=== PATIENT | female | born 1965 | race Caucasian/White ===

== ENCOUNTER 2018-10-10 13:38 | Inpatient (IN) ==
[2018-10-10] MEDS: PROTONIX IV SCH (16:42)
[2018-10-10] MEDS: ZOSYN 3.375 GM in NS 50 ML IV SCH ×2 (16:42→22:49)
[2018-10-10] MEDS ORDERED: NS 250 ML ONE (17:10)
[2018-10-10] MEDS: FLAGYL 500 MG/NS 500 MG/100 ML IVPB IV SCH ×2 (17:14→22:48)
[2018-10-10] MEDS: MORPHINE IV PRN ×2 (17:22→22:42)
[2018-10-10] MEDS ORDERED: ZOFRAN IV PRN (19:52)
[2018-10-10] MEDS: NS + KCL 20 MEQ 1,000 ML IV SCH (20:22)
--- NOTE | 2018-10-10 20:56 | CONSULTATION ---
DATE OF CONSULTATION: 10/10/2018 HISTORY OF PRESENT ILLNESS: Ms. Tova Crowder is a 52-year-old, overweight, white female patient of Dr. Torres. She began hurting in her left lower quadrant and as part of her evaluation, she underwent a CT scan of her abdomen and pelvis which suggests acute sigmoid diverticulitis with complication of possible small abscess. She was admitted for IV antibiotics, and we were asked to see her. She had an episode of diverticulitis 5 years ago which resolved with IV antibiotic treatment. PAST MEDICAL/SURGICAL HISTORY: Three C-sections, hysterectomy, bilateral shoulder surgeries, right knee surgery, Breast reduction, high cholesterol, diabetes. MEDICATIONS: Lipitor, Celebrex, Bentyl,Asacol, Glucophage, omeprazole and Effexor. ALLERGIES: Oxycodone. SOCIAL HISTORY: She is not a smoker. was at the bedside. She has 3 children. Sometimes she takes care of her grandchildren. She stays at home but remains active. REVIEW OF SYSTEMS: A 14-point review of systems was performed and was essentially negative except for the history of present illness. PHYSICAL EXAMINATION: General: On exam, Ms. Crowder is overweight but otherwise appears to be healthy. She is in no acute distress. HEENT: She has no jaundice. No oral lesions. Satisfactory dentition. Lymphatics: No cervical or supraclavicular lymphadenopathy. Cardiovascular: Her heart has a regular rate. Lungs: Clear to auscultation and percussion bilaterally. Abdomen: It is soft but is tender in the left lower quadrant. Rectal exam: Was not performed. Extremities: She does have palpable peripheral pulses. No significant peripheral edema. Neurologic: She is alert and oriented x3 and appropriate without evidence of any focal deficit. IMAGING: CT scan performed today suggested sigmoid diverticulitis with possible small abscess. IMPRESSION: Acute complicated sigmoid diverticulitis with possible small abscess. PLAN: She is receiving IV Zosyn and Flagyl and a clear liquid diet per Dr. Torres. I will follow along with you. cc: MD Timothy Mora MD
--- NOTE | 2018-10-10 20:56 | HISTORY AND PHYSICAL ---
CHIEF COMPLAINT: Left lower quadrant pain. HISTORY OF PRESENT ILLNESS: Ms. Crowder is a 52-year-old white female patient complaining of pain in the left lower quadrant going on for 2 days. The pain was gradually getting worse, colicky in nature. The patient did have some chills and low-grade fever. The patient noticed some mucus in the stool today. Initially, she was complaining of being constipated. The pain was moderate to severe in intensity. At times, it was doubling her up. No blood in the stool. Mild dysuria. The patient did have nausea but no vomiting. I evaluated the patient in the office. The patient did have significant tenderness in the left lower quadrant. I offered her hospitalization, but the patient declined. I did initial workup including blood work and a CT scan of the abdomen and pelvis, which her blood work did reveal leukocytosis with left shift. The patient's urine revealed 2+ bacteria, and CT scan of the abdomen and pelvis revealed prominent fatty infiltration of the liver, inflammation at the descending colon/sigmoid colon junction. There were multiple diverticula in this location. Tiny adjacent fluid collection measuring 1.4 cm versus an enlarged diverticulum. No air within this. No bowel obstruction. Overall impression: Diverticulitis at the junction of the descending and sigmoid colon, questionable tiny adjacent early abscess. I called the patient back, discussed the result, and advised her to be admitted for IV antibiotics and IV fluids. The patient understood and agreed. The patient denied any sore throat. No unusual cough, expectoration, or hemoptysis. No typical chest pain, palpitation, orthopnea, or PND. Denied vaginal discharge, spotting, bleeding. No leg swelling. No heat or cold intolerance. No further history available at this time. ALLERGIES: Oxycodone. HOME MEDICATIONS: Her home medication includes Lipitor, Celebrex, Bentyl, Asacol, Glucophage, Prilosec, Effexor. PAST MEDICAL HISTORY: Significant for gastritis and reflux disease, situational depression, NIDDM, colitis, colon spasm, osteoarthritis, hyperlipidemia. PAST SURGICAL HISTORY: The patient had a hysterectomy. PERSONAL HISTORY: . Lives with the . The patient denied smoking or alcohol use. FAMILY HISTORY: Noncontributory. REVIEW OF SYSTEMS: As per HPI. PHYSICAL EXAMINATION: GENERAL: Middle-aged white female patient in mild distress. VITAL SIGNS: Blood pressure 145/87, pulse 100, respirations 22, temperature 99 degrees. SKIN: Normal turgor. No rash or petechiae. HEENT: Head atraumatic, normocephalic. Wylie conjunctivae. Anicteric sclerae. Extraocular muscle movement normal. Fundus: Sharp disks. Ears and nose benign. NECK: Supple. No JVD, thyromegaly, or lymphadenopathy. CHEST: Bilateral good air entry present. No rales or rhonchi. CARDIOVASCULAR: S1 and S2 heard. No gallop or thrill. ABDOMEN: Soft. No distention. Bowel sounds present. Significant tenderness in the left lower quadrant. No guarding or rigidity. EXTREMITIES: No cyanosis or clubbing. No acute DVT. CENTRAL NERVOUS SYSTEM: Alert, awake. Able to move all 4 limbs. IMAGING STUDIES: The patient's CT scan results were reviewed. LABORATORIES: Her admission lab data was reviewed which revealed leukocytosis with left shift. Her electrolytes were benign. CONSIDERATION: 1. Acute diverticulitis with localized abscess. 2. Hypertension. 3. Hyperlipidemia. 4. Osteoarthritis. 5. Gastritis and reflux disease. 6. [id number] diabetes mellitus. PLAN: Admit patient. IV hydration. IV antibiotics. Surgical consult. Overall plan discussed at length with the patient and her . They are in agreement. cc: Timothy Torres MD
[2018-10-10] MEDS: EFFEXOR PO SCH (22:46)
[2018-10-10] MEDS: LIPITOR PO SCH (22:46)
[2018-10-11] MEDS: ZOSYN 3.375 GM in NS 50 ML IV SCH ×4 (04:28→22:33)
[2018-10-11] MEDS: FLAGYL 500 MG/NS 500 MG/100 ML IVPB IV SCH ×4 (04:28→23:30)
[2018-10-11] MEDS: NS + KCL 20 MEQ 1,000 ML IV SCH ×3 (06:07→22:33)
[2018-10-11] MEDS: LOVENOX SUBQ SCH (06:07)
--- NOTE | 2018-10-11 07:15 | PROGRESS NOTE ---
DATE: 10/11/2018 SUBJECTIVE: Ms. Crowder is feeling some better. Abdominal pain and soreness improving. No nausea or vomiting. Denied any diarrhea. No high-grade fever or chills. No chest pain. OBJECTIVE: Vital Signs: Her vital signs are noted which is stable. Blood pressure 125/75, pulse 90, respirations 19, and temperature 97.8 degrees. Neck: Supple. No JVD. Lungs: Bilateral good air entry present. CVS: S1 and S2 heard. Abdomen: Soft and nontender. Bowel sounds present. [employer] TECHNICIAN: Alert and awake. Able to move all 4 limbs. Tenderness in left lower quadrant improving. CONSIDERATION: Sigmoid diverticulitis with possibility of abscess. History of gastritis and reflux disease. NIDDM. Osteoarthritis. PLAN: We will continue current treatment. The patient will stay on clear to full liquid diet for 3 to 4 days. If clinical condition permits, we will discharge patient home tomorrow. Follow up with me in 7 days. Advised her to start Glucophage after 48 hours. Plenty of liquids orally. In case of more distress, call us back or go to emergency room. I wrote her prescription for Flagyl and Augmentin. Discharge plan discussed with the patient and she is in agreement. cc: Timothy Torres MD
[2018-10-11 07:41] LABS: BASO# 0.02 X1000 (0.0-0.2); BASO% 0.2 % (0.0-0.8); EOS# 0.13 X1000 (0.0-0.7); EOS% 1.4 % (0.0-10.0); HEMATOCRIT 42.1 % (37.0-47.0); HEMOGLOBIN 13.9 g/dL (12.0-16.0); IMM GRAN# 0.02 X1000 (0.0-0.04); IMM GRAN% 0.2 % (0.0-0.5); LYMPH# 2.51 X1000 (1.2-3.4); LYMPH% 27.3 % (20.5-51.1); MCH 27.9 PG (27-31); MCV 84.5 FL (81-99); MONO# 0.78 X1000 (0.11-0.59); MONO% 8.5 % (1.7-9.3); MPV 9.7 FL (7.4-10.4); NEUT# 5.72 X1000 (1.4-6.5); NEUT% 62.4 % (42.2-75.2); PLT 401 X1000 (130-400); RBC 4.98 XMIL (4.2-5.4); RDW 13.3 % (11.5-14.5); WBC 9.18 X1000 (4.8-10.8)
[2018-10-11 08:10] LABS: AGAP 11; ALB/GLOB RATIO 1.2; ALBUMIN 3.9 g/dL (3.5-5.0); ALKALINE PHOSPHATASE 105 U/L (32-104); BUN 10 mg/dL (8-22); CALCIUM 8.7 mg/dL (8.8-10.2); CHLORIDE 106 mmol/L (98-107); COSMO 281; CREATININE 0.7 mg/dL (0.5-0.9); ESTIMATED GFR > 60; GLUCOSE 112 mg/dL (70-104); GOT 17 U/L (10-30); GPT 26 U/L (10-36); POTASSIUM 4.4 mmol/L (3.5-5.1); SODIUM 141 mmol/L (136-145); TCO2 24 mmol/L (25-35); TOTAL BILIRUBIN 0.69 mg/dL (0.20-1.00); TOTAL PROTEIN 7.2 g/dL (6.3-8.3)
--- NOTE | 2018-10-11 08:52 | Diag Imaging Result Doc PS360 ---
EXAM: FLAT/UPRIGHT ABD/1 VIEW CHEST INDICATION: Diverticulitis TECHNIQUE: 4 views COMPARISON: 10/10/2018 FINDINGS: There is retained contrast media in the colon from a recent CT performed yesterday. There are unremarkable bowel gas and stool patterns. There is no obstructive bowel pattern. There is no evidence of large volume free abdominal gas. There is no evidence of organomegaly. The lungs are grossly clear. There is no discrete pleural fluid collection or pneumothorax. The cardiomediastinal silhouette and central vasculature are grossly unremarkable. IMPRESSION: No evidence of acute pathology by plain radiograph. Electronically signed by Harley Thomas 10/11/2018 8:50 AM
[2018-10-11] MEDS: EFFEXOR PO SCH ×3 (09:10→20:21)
[2018-10-11] MEDS: ASACOL HD PO SCH ×3 (09:54→17:08)
[2018-10-11] MEDS: PROTONIX IV SCH (17:09)
--- NOTE | 2018-10-11 17:46 | PROGRESS NOTE ---
DATE: 10/11/2018 Ms. Crowder is now hospital day 2 for acute complicated sigmoid diverticulitis. She is receiving IV antibiotics and clinically already feels better. She is afebrile. Her heart rate is 82, blood pressure 130/90, O2 saturation is 98%. Her white blood cell count is 9, hematocrit is 42%. Electrolytes were within normal limits as were her liver function tests. A plain film done today was essentially normal. She is still on a clear liquid diet. IV antibiotics continue. cc: MD Timothy Mora MD
[2018-10-11] MEDS: LIPITOR PO SCH ×2 (19:44→20:22)
[2018-10-11] MEDS: MORPHINE IV PRN (19:44)
[2018-10-12] MEDS: ZOSYN 3.375 GM in NS 50 ML IV SCH ×4 (04:05→23:09)
[2018-10-12] MEDS: NS + KCL 20 MEQ 1,000 ML IV SCH ×4 (04:05→23:12)
[2018-10-12] MEDS: FLAGYL 500 MG/NS 500 MG/100 ML IVPB IV SCH ×4 (05:16→23:10)
[2018-10-12] MEDS: LOVENOX SUBQ SCH (05:17)
[2018-10-12] MEDS: ASACOL HD PO SCH ×3 (08:42→17:15)
[2018-10-12] MEDS: EFFEXOR PO SCH ×2 (08:42→20:25)
[2018-10-12] MEDS ORDERED: ULTRAM PO PRN (12:38)
[2018-10-12] MEDS: PROTONIX IV SCH (17:15)
[2018-10-12] MEDS: LIPITOR PO SCH (20:25)
--- NOTE | 2018-10-12 22:31 | PROGRESS NOTE ---
DATE: 10/12/2018 Vital signs: Temperature 98 degrees, heart rate 77, respirations 18, blood pressure 149/80, O2 saturation 100% on room air. The patient is improving and has been up walking. There is much less pain. She is eating a solid diet. Dr. Alvarez, who was visiting for surgery, indicated that she would probably be able to go home tomorrow. PLAN: Change pain medicine to p.o., ambulate, continue intravenous antibiotics. cc: MD Timothy Vidal MD
[2018-10-13] MEDS: ZOSYN 3.375 GM in NS 50 ML IV SCH (03:25)
[2018-10-13] MEDS: FLAGYL 500 MG/NS 500 MG/100 ML IVPB IV SCH (04:30)
--- NOTE | 2018-10-13 05:05 | GENERAL SURGERY PROGRESS NOTE ---
DATE: 10/12/2018 SUBJECTIVE: Feels better. Says the pain for the most part resolved. OBJECTIVE: Vital signs: No fevers. No tachycardia. Blood pressure 150/80. General: She is alert. Abdomen: Soft, nontender, nondistended with no peritonitis. LABS: No new labs yet this morning. White count was normal yesterday. ASSESSMENT AND PLAN: This is a 52-year-old female with a recurrent episode of diverticulitis. Overall, she is doing okay. We will continue antibiotics. We will give her a soft diet and see how she tolerates that today. cc: MD Timothy Mcgraw MD
[2018-10-13] MEDS: NS + KCL 20 MEQ 1,000 ML IV SCH (05:22)
[2018-10-13] MEDS: LOVENOX SUBQ SCH (05:22)
[2018-10-13 07:47] VITALS: BP 143/85
[2018-10-13] MEDS: ASACOL HD PO SCH (08:23)
[2018-10-13] MEDS: EFFEXOR PO SCH (08:23)
[2018-10-13] MEDS ORDERED: FLAGYL PO SCH (14:00)
--- NOTE | 2018-10-13 20:40 | DISCHARGE SUMMARY ---
ADMISSION DATE: 10/10/2018 DISCHARGE DATE: 10/13/2018 FINAL DIAGNOSES: 1. Diverticulitis. 2. Mild diverticular abscess, left lower quadrant sigmoid area. 3. Diabetes. 4. Dyspepsia. HISTORY: This is the first recent [facility] admission for this 52-year-old white female with left lower quadrant abdominal pain for a couple of days. The pain was moderate in intensity. There was no blood in her stool. She had mild dysuria. CT of her abdomen and pelvis was done revealing inflammation of the descending colon and sigmoid junction. There were multiple diverticula in this area. There was an adjacent fluid collection measuring 1.4 cm versus an enlarged diverticulum. There was no air within this. There was question of an early abscess. She was admitted for treatment with intravenous antibiotics and for further evaluation. INITIAL LABORATORY: Hemoglobin 13.9, hematocrit 42.1, white blood count 9200 with 62% neutrophils. BUN was 10, creatinine 0.7, glucose 112, alkaline phosphatase 105. Other LFTs normal. HOSPITAL COURSE: She was treated with piperacillin and Flagyl. There was slow improvement over a couple of days. She has had minimal discomfort in her lower abdomen for a couple of days, not needing any pain medicine. She is feeling well this morning and is eating well without nausea. She is discharged home on p.o. Flagyl q.6 hours (30) to take until gone. She is to see Dr. Torres on Sunday of this week for followup. cc: MD Timothy Vidal MD
== END 2018-10-13 09:53 | disposition home or self-care (01) | DRG 392 ==
LOC: DIRADM 13:38 → 3N 14:05
PROVIDERS: ADMIT Internal Medicine; ATTEND Internal Medicine
CPT/HCPCS: 74022; 80053; 83735; 85025; 87040; A9270; C9113; J2270; J2405; J2543; J3480; J7050; S0030; S0164